=== PATIENT | male | born 1955 | race Caucasian/White ===

== ENCOUNTER 2021-09-20 19:36 | Emergency (ER) | payer SELFPAY ==
--- NOTE | 2021-09-20 20:25 | ED Cough/URI ---
General Stated Complaint: COUGH,LOWER BACK PAIN,HEADACHE Source: patient Exam Limitations: no limitations History of Present Illness Date Seen by Provider: Sep 20, 2021 Time Seen by Provider: 19:42 Initial Comments 66-year-old male with no significant past medical history since he does not go to the doctor coming in due to 2 days of cough, fever, congestion, nausea, loose stools, body aches. Other family members have been sick with similar things. He has not had any medications as of today. He endorses some chest discomfort this been going on for roughly 24 hours that is mild, left side of his chest, nonradiating, throbbing/tightness. Nothing seems to make it better or worse. He has some associated dyspnea. He is otherwise denying any other acute complaints. Allergies and Home Medications Allergies Coded Allergies: No Known Drug Allergies (Unverified , 09/20/21) Patient Home Medication List Home Medication List Reviewed: Yes Review of Systems Review of Systems Constitutional: chills, fever EENTM: No blurred vision Respiratory: cough, short of breath Cardiovascular: chest pain Gastrointestinal: diarrhea, nausea; No vomiting Genitourinary: no symptoms reported Musculoskeletal: no symptoms reported Skin: no symptoms reported Psychiatric/Neurological: No Symptoms Reported Hematologic/Lymphatic: No Symptoms Reported Immunological/Allergic: no symptoms reported All Other Systems Reviewed Negative Unless Noted: Yes Physical Exam Vital Signs - First Documented 09/20/21 20:00 Temp 38.5 Pulse 92 Resp 22 B/P (MAP) 138/79 (98) Pulse Ox 98 O2 Delivery Room Air Capillary Refill : Height: '" Weight: lbs. oz. kg; BMI Method: General Appearance: WD/WN, no apparent distress Eyes: Bilateral Eye Normal Inspection HEENT: PERRL/EOMI, normal ENT inspection, pharynx normal Neck: non-tender, full range of motion, supple, normal inspection Respiratory: chest non-tender, lungs clear, normal breath sounds, no respiratory distress, no accessory muscle use Cardiovascular: regular rate, rhythm, no edema, no murmur Gastrointestinal: normal bowel sounds, non tender, soft; No distended, No guarding, No rebound Extremities: normal range of motion, non-tender, normal inspection, no pedal edema, no calf tenderness, normal capillary refill Neurologic/Psychiatric: no motor/sensory deficits, alert, normal mood/affect Skin: normal color, warm/dry Lymphatic: no adenopathy Focused Exam Lactate Level 09/20/21 20:19: Lactic Acid Level 1.23 Lactic Acid Level Laboratory Tests Test 09/20/21 20:19 Lactic Acid Level 1.23 MMOL/L (0.50-2.00) Progress/Results/Core Measures Suspected Sepsis SIRS Temperature: Pulse: Respiratory Rate: Laboratory Tests 09/20/21 20:19: White Blood Count 9.8 Blood Pressure / Mean: 09/20/21 20:19: Lactic Acid Level 1.23 Laboratory Tests 09/20/21 20:19: Creatinine 0.87, INR Comment 1.0, Platelet Count 280, Total Bilirubin 0.3 Results/Orders Lab Results Laboratory Tests Test 09/20/21 20:19 09/20/21 20:35 Range/Units White Blood Count 9.8 4.3-11.0 10^3/uL Red Blood Count 5.59 H 4.30-5.52 10^6/uL Hemoglobin 14.9 13.3-17.7 g/dL Hematocrit 45 40-54 % Mean Corpuscular Volume 81 80-99 fL Mean Corpuscular Hemoglobin 27 25-34 pg Mean Corpuscular Hemoglobin Concent 33 32-36 g/dL Red Cell Distribution Width 13.7 10.0-14.5 % Platelet Count 280 130-400 10^3/uL Mean Platelet Volume 10.2 9.0-12.2 fL Immature Granulocyte % (Auto) 1 % Neutrophils (%) (Auto) 71 42-75 % Lymphocytes (%) (Auto) 10 L 12-44 % Monocytes (%) (Auto) 14 H 0-12 % Eosinophils (%) (Auto) 4 0-10 % Basophils (%) (Auto) 1 0-10 % Neutrophils # (Auto) 7.0 1.8-7.8 10^3/uL Lymphocytes # (Auto) 1.0 1.0-4.0 10^3/uL Monocytes # (Auto) 1.3 H 0.0-1.0 10^3/uL Eosinophils # (Auto) 0.4 H 0.0-0.3 10^3/uL Basophils # (Auto) 0.1 0.0-0.1 10^3/uL Immature Granulocyte # (Auto) 0.1 0.0-0.1 10^3/uL Prothrombin Time 13.2 12.2-14.7 SEC INR Comment 1.0 0.8-1.4 Activated Partial Thromboplast Time 28 24-35 SEC Sodium Level 133 L 135-145 MMOL/L Potassium Level 4.5 3.6-5.0 MMOL/L Chloride Level 98 98-107 MMOL/L Carbon Dioxide Level 23 21-32 MMOL/L Anion Gap 12 5-14 MMOL/L Blood Urea Nitrogen 20 H 7-18 MG/DL Creatinine 0.87 0.60-1.30 MG/DL Estimat Glomerular Filtration Rate 95 BUN/Creatinine Ratio 23 Glucose Level 128 H 70-105 MG/DL Lactic Acid Level 1.23 0.50-2.00 MMOL/L Calcium Level 9.2 8.5-10.1 MG/DL Corrected Calcium 9.3 8.5-10.1 MG/DL Total Bilirubin 0.3 0.1-1.0 MG/DL Aspartate Amino Transf (AST/SGOT) 24 5-34 U/L Alanine Aminotransferase (ALT/SGPT) 20 0-55 U/L Alkaline Phosphatase 107 40-136 U/L Troponin I < 0.30 <0.30 NG/ML Pro-B-Type Natriuretic Peptide 22.8 <75.0 PG/ML Total Protein 7.9 6.4-8.2 GM/DL Albumin 3.9 3.2-4.5 GM/DL Influenza Type A Antigen POSITIVE H NEGATIVE Influenza Type B Antigen NEGATIVE NEGATIVE My Orders Orders - SERVANDO CRUZ MD Cbc With Automated Diff (09/20/21 20:21) Comprehensive Metabolic Panel (09/20/21 20:21) Blood Culture (09/20/21 20:21) Urinalysis (09/20/21 20:21) Urine Culture (09/20/21 20:21) Protime With Inr (09/20/21 20:21) Partial Thromboplastin Time (09/20/21 20:21) Chest 1 View Ap/Pa Only (09/20/21 20:21) Ed Iv/Invasive Line Start (09/20/21 20:21) Ekg Tracing (09/20/21 20:21) Troponin I [place] (09/20/21 20:21) O2 (09/20/21 20:21) Lactic Acid Analyzer (09/20/21 20:21) Influenza A & B Antigens (09/20/21 20:21) Covid 19 Inhouse Test (09/20/21 20:21) Aspirin Chewable Tablet (Baby Aspirin Ch (09/20/21 20:30) Acetaminophen Tablet (Tylenol Tablet) (09/20/21 20:30) Probnp Fs (09/20/21 20:37) Medications Given in ED Current Medications Medications Dose Ordered Sig/Colby Route Start Time Stop Time Status Last Admin Dose Admin Acetaminophen 1,000 mg ONCE ONCE PO 09/20/21 20:30 09/20/21 20:31 DC 09/20/21 20:39 1,000 MG Aspirin 324 mg ONCE ONCE PO 09/20/21 20:30 09/20/21 20:31 DC 09/20/21 20:39 324 MG Vital Signs/I&O 09/20/21 20:00 Temp 38.5 Pulse 92 Resp 22 B/P (MAP) 138/79 (98) Pulse Ox 98 O2 Delivery Room Air Capillary Refill : Progress Note : Progress Note 66-year-old male coming in for flulike symptoms. ABCs were intact and vitals were stable on presentation although he is febrile. An IV was placed and basic labs were obtained including cardiac biomarkers due to his fever and some mild chest discomfort. EKG without ischemic changes. Troponin negative. Labs significant for positive influenza A test. Chest x-ray without focal abnormality on my interpretation. Given Tylenol for fever and aspirin for his chest discomfort. Given the chest discomfort has been going on for more than a day, constant, not worse with exertion, and overall not consistent with ACS. The negative troponin with the constant pain is reassuring as well. On reassessment he is well-appearing, and I believe stable for discharge with outpatient follow-up. Given his age we will give him Tamiflu. He was sent home with strict return precautions ECG Initial ECG Impression Date: Sep 20, 2021 Initial ECG Impression Time: 20:09 Initial ECG Rate: 95 Initial ECG Rhythm: Normal Sinus Initial ECG Comparisson: No Previous ECG Available Comment Narrow QRS, normal axis, no significant ST changes, T wave flattening in the high lateral leads which is nonspecific Diagnostic Imaging Diagonstic Imaging: Xray (chest) Comments [facility], [place] NAME: BARI TRUONG [facility] REC#: [id number] PT STATUS: REG ER : 1955 PHYSICIAN: SERVANDO CRUZ MD ADMIT DATE: 09/20/21/ER FS Signed Date of Exam:09/20/21 CHEST 1 VIEW AP/PA ONLY EXAMINATION: Chest 1 view HISTORY: Cough. Fever. COMPARISON: None available. FINDINGS: The lung volumes are low. No focal consolidation is seen. No large pleural effusion or pneumothorax is seen. The cardiomediastinal silhouette is normal in size and contour. No acute osseous abnormality is seen. IMPRESSION: 1. Low lung volumes, likely due to poor inspiratory effort. No focal consolidation or pleural effusion. Dictated by: Dictated on workstation # [id number] Dict: 09/20/212038 Trans: 09/20/212040 [facility] [id number] Interpreted by: ALEXANDER SALCEDO DO Electronically signed by: ALEXANDER SALCEDO DO 09/20/212040 Departure Impression Primary Impression: Influenza A Disposition: 01 HOME, SELF-CARE Condition: Stable Departure-Patient Inst. Decision time for Depature: 21:41 Referrals: [facility] [place]YSICIAN (PCP) Primary Care Physician Patient Instructions: Flu, Adult (DC) Add. Discharge Instructions: You do have influenza A. Sometimes people are symptomatic for 3 days to a couple weeks. Take Tylenol 1000 mg every 6 hours as needed for your fever and body aches. If you have continued fever and body aches you can take ibuprofen 400 to 600 mg every 6 hours as well. Drink plenty of fluids. I sent nausea medicines to your pharmacy as well as Tamiflu. Follow-up with a regular doctor, I gave you information for [facility] here if you are not feeling better soon Scripts Oseltamivir Phosphate (Tamiflu) 75 Mg Cap 75 MG PO BID for 5 Days, #10 CAP Prov: SERVANDO CRUZ MD 09/20/21 Ondansetron (Ondansetron Odt) 4 Mg Tab.rapdis 4 MG PO Q6H PRN for NAUSEA/VOMITING-1ST LINE for 5 Days, #20 TAB Prov: SERVANDO CRUZ MD 09/20/21 Work/School Note: Work Release Form Date Seen in the Emergency Department: Sep 20, 2021 Return to Work: Sep 22, 2021 Restrictions: Return-No Fever (24hrs) SERVANDO CRUZ MD Sep 20, 2021 20:25
[2021-09-20] MEDS ORDERED: ACETAMINOPHEN 500 MG TAB (TYLENOL) PO ONE (20:30)
[2021-09-20] MEDS ORDERED: ASPIRIN 81 MG CHEW (CHILDREN'S ASA) PO ONE (20:30)
[2021-09-20 20:36] LABS: BASOPHILS # (AUTO) 0.1 10^3/uL (0.0-0.1); BASOPHILS % (AUTO) 1 % (0-10); EOSINOPHILS # (AUTO) 0.4 10^3/uL (0.0-0.3); EOSINOPHILS % (AUTO) 4 % (0-10); HEMATOCRIT 45 % (40-54); HEMOGLOBIN 14.9 g/dL (13.3-17.7); LYMPHOCYTES % (AUTO) 10 % (12-44); MEAN CORPUSCULAR HEMOGLOBIN 27 pg (25-34); MEAN CORPUSCULAR HGB CONC 33 g/dL (32-36); MEAN CORPUSCULAR VOLUME 81 fL (80-99); MEAN PLATELET VOLUME 10.2 fL (9.0-12.2); MONOCYTES # (AUTO) 1.3 10^3/uL (0.0-1.0); MONOCYTES % (AUTO) 14 % (0-12); NEUTROPHILS % (AUTO) 71 % (42-75); PLATELET COUNT 280 10^3/uL (130-400); WHITE BLOOD COUNT 9.8 10^3/uL (4.3-11.0)
--- NOTE | 2021-09-20 20:41 | Diagnostic Imaging Report ---
EXAMINATION: Chest 1 view HISTORY: Cough. Fever. COMPARISON: None available. FINDINGS: The lung volumes are low. No focal consolidation is seen. No large pleural effusion or pneumothorax is seen. The cardiomediastinal silhouette is normal in size and contour. No acute osseous abnormality is seen. IMPRESSION: 1. Low lung volumes, likely due to poor inspiratory effort. No focal consolidation or pleural effusion. Dictated by: Dictated on workstation # [id number]
[2021-09-20 20:49] LABS: PROTHROMBIN TIME PATIENT 13.2 SEC (12.2-14.7)
[2021-09-20 21:00] LABS: ALKALINE PHOSPHATASE 107 U/L (40-136); BILIRUBIN,TOTAL 0.3 MG/DL (0.1-1.0); BUN/CREATININE RATIO 23; CALCIUM 9.2 MG/DL (8.5-10.1); CARBON DIOXIDE 23 MMOL/L (21-32); CHLORIDE 98 MMOL/L (98-107); CREATININE SERUM 0.87 MG/DL (0.60-1.30); GFR ESTIMATED 95; GLUCOSE 128 MG/DL (70-105); POTASSIUM 4.5 MMOL/L (3.6-5.0); SODIUM 133 MMOL/L (135-145)
[2021-09-20 21:01] LABS: ALANINE AMINOTRANSFERASE 20 U/L (0-55); ALBUMIN 3.9 GM/DL (3.2-4.5); TOTAL PROTEIN 7.9 GM/DL (6.4-8.2)
[2021-09-20] MEDS ORDERED: ONDA4TAB11 PO (21:46)
[2021-09-20] MEDS ORDERED: OSLT75C PO (21:46)
[2021-09-20 21:47] VITALS: BP 146/86
== END 2021-09-20 21:52 | disposition home or self-care (01) ==
LOC: ER FS 19:37
DX: J10.1 Influenza due to other identified influenza virus with other respiratory manifestations (principal); Z20.822 Contact with and (suspected) exposure to COVID-19
CPT/HCPCS: 36415; 71045; 80053; 83605; 83880; 84484; 85025; 85610; 85730; 87040; 87636; 87804; 93005